=== PATIENT | male | born 1975 | race African-American/Black ===

== ENCOUNTER 2024-12-30 21:10 | Emergency (ER) | payer BC ==
[~2024-12-30] VITALS: Ht 175.3 cm; Wt 77.1 kg
[2024-12-30 23:21] VITALS: BP 146/89; O2SAT 96
== END 2024-12-30 23:28 | disposition home or self-care (01) ==
LOC: ER 21:22
DX: S60.042A Contusion of left ring finger without damage to nail, initial encounter (principal); Z88.0 Allergy status to penicillin; W23.0XXA Caught, crushed, jammed, or pinched between moving objects, initial encounter; Y93.75 Activity, martial arts; Y92.89 Other specified places as the place of occurrence of the external cause; Y99.8 Other external cause status
CPT/HCPCS: 73140; A4606; A4663